=== PATIENT | male | born 1960 | race Caucasian/White ===

== ENCOUNTER → 2023-05-22 | Outpatient (CLI) | payer SELFPAY ==
--- NOTE | 2023-05-22 13:19 | EKG12_ITS ---
Test Reason : PREOP Blood Pressure : / mmHG Vent. Rate : 091 BPM Atrial Rate : 091 BPM P-R Int : 132 ms QRS Dur : 086 ms QT Int : 338 ms P-R-T Axes : 052 254 039 degrees QTc Int : 415 ms Normal sinus rhythm Right ventricular hypertrophy Abnormal ECG Confirmed by SHAWN HOBBS, JENNIFER ([id number]), market editor HAILY ABEBE ([id number]) on 05/23/2023 1:35:39 PM Referred By: Augustine Hedrick Confirmed By:JENNIFER ESCOBAR MD
[2023-05-22 14:42] LABS: Hematocrit 45.6 % (40-54); Hemoglobin 15.8 g/dL (13.0-16.5); Mean Corp Hgb Conc 34.6 g/dL (32-36); Mean Corpuscular Hgb 31.3 pg (27.0-32.0); Mean Corpuscular Volume 90.3 fL (80-94); Mean Platelet Vol. 8.7 fl (6.2-12.0); Platelet Count 230 K/mm3 (150-450); RBC Distribution Width CV 12.2 % (11.6-14.6); Red Blood Count 5.05 M/mm3 (4.6-6.2); White Blood Count 6.3 K/mm3 (4.4-11.0)
[2023-05-22 15:08] LABS: Anion Gap 6 (5-15); BUN 22 mg/dL (7-18); Chloride 108 mmol/L (98-107); Creatinine, Serum 0.96 mg/dL (0.70-1.30); EST Glomerular Filtration Rate 85 mL/min (>60); Est Glom Filt Rate - Afr Amer 103 mL/min (>60); Glucose 89 mg/dL (74-106); Potassium 4.1 mmol/L (3.5-5.1); Sodium Level 142 mmol/L (136-145)
== END | disposition home or self-care (01) ==
LOC: PSN 13:17
PROVIDERS: PCP Family Medicine; Referring Provider Urology; Visit Provider Urology
DX: Z01.810 Encounter for preprocedural cardiovascular examination (principal)
CPT/HCPCS: 36415; 80048; 85027; 93005

== ENCOUNTER → 2025-02-28 | Outpatient (CLI) | payer OTHER, SELFPAY ==
--- NOTE | 2025-02-28 15:35 | RAD_ITS ---
PROCEDURE: SHOULDER MIN 2 VIEWS 02/28/2025 REASON FOR EXAM: SHOULDER INJURY TECHNIQUE: Procedure Code: RADSH Modality: DX Procedure: SHOULDER MIN 2 VIEWS Laterality: Right COMPARISON: None. FINDINGS: There is no evidence of fracture or dislocation. There is mild arthritis of the glenohumeral joint. There is no arthritis of the acromioclavicular joint. The periarticular soft tissues are unremarkable. RAD/Shoulder min 2 Views IMPRESSION: Mild arthritis of the glenohumeral joint. Reading Location: [place] [id number]
== END | disposition home or self-care (01) ==
LOC: MTRAD 15:35
PROVIDERS: PCP Family Medicine; Referring Provider Physician Assistant; Visit Provider Physician Assistant
DX: S49.91XA Unspecified injury of right shoulder and upper arm, initial encounter (principal)
CPT/HCPCS: 73030

== ENCOUNTER → 2025-04-01 | Outpatient (CLI) | payer OTHER, SELFPAY ==
--- NOTE | 2025-04-01 17:10 | CT_ITS ---
PROCEDURE: CT/Extremity Upper without Contra
== END | disposition home or self-care (01) ==
LOC: CT 17:03
PROVIDERS: Referring Provider Physician Assistant; Visit Provider Physician Assistant
DX: S46.911A Strain of unspecified muscle, fascia and tendon at shoulder and upper arm level, right arm, initial encounter (principal)
CPT/HCPCS: 73200